=== PATIENT | female | born 1995 | race Caucasian/White ===

== ENCOUNTER → 2020-07-24 | Outpatient (CLI) | payer MEDICAID ==
--- NOTE | 2020-07-24 16:31 | RADIOLOGY REPORT (SQ) ---
EXAM DESCRIPTION: U/S NON OB PEL W/DOPPLER IMAGES COMPLETED DATE/TIME: 07/24/2020 4:22 pm REASON FOR STUDY: R10.2 PELVIC AND PERINEAL PAIN R10.2 PELVIC AND PERINEAL PAIN COMPARISON: None. TECHNIQUE: Dynamic and static grayscale images acquired of the pelvis via transabdominal approach an d recorded on PACS. Additional selected color Doppler and spectral images recorded. LIMITATIONS: None. FINDINGS: UTERUS: Normal in size and contour measuring 8.7 x 4.9 x 3.6 cm ENDOMETRIAL STRIPE: No focal or generalized thickening. No masses. Endometrial stripe measures 4 mm. CERVIX: No nabothian cysts. RIGHT OVARY AND DOPPLER: Normal size measuring 2.6 x 1.7 x 2.1 cm. No worrisome masses. Normal arteri al vascular flow without evidence for torsion. LEFT OVARY AND DOPPLER: Normal size measuring 2.4 x 2.3 x 1.6 cm. No worrisome masses. Normal arteria l vascular flow without evidence for torsion. FREE FLUID: None noted. OTHER: Linear echogenic focus within the endometrial canal compatible with intrauterine device. IMPRESSION: Linear echogenic focus within the endometrial canal compatible with intrauterine device. Otherwise, unremarkable pelvic ultrasound. TECHNICAL DOCUMENTATION: JOB ID: [id number] 2010 [employer]- All Rights Reserved Rev-03/09 Reading location - IP/workstation name: [email or web address]
== END ==
LOC: RAD 16:00
PROVIDERS: ATTEND Nurse Practitioner Family
DX: R10.2 Pelvic and perineal pain (principal); Z97.5 Presence of (intrauterine) contraceptive device
CPT/HCPCS: 76856; 93976

== ENCOUNTER 2020-10-19 05:25 | Day surgery (SDC) | payer MEDICAID ==
[2020-10-14 13:10] LABS: APPEARANCE,URINE CLEAR; BILIRUBIN,URINE NEGATIVE (NEGATIVE); COLOR,URINE YELLOW; GLUCOSE, URINE NEGATIVE (NEGATIVE); KETONES,URINE NEGATIVE (NEGATIVE); LEUKOCYTE ESTERASE,URINE NEGATIVE (NEGATIVE); NITRITE,URINE NEGATIVE (NEGATIVE); PROTEIN,URINE NEGATIVE (NEGATIVE); URINE SPECIFIC GRAVITY 1.011; UROBILINOGEN,URINE NEGATIVE mg/dL (<2.0)
[2020-10-14 13:18] LABS: HEMATOCRIT 37.9 % (36.0-47.0); HEMOGLOBIN 12.6 g/dL (12.0-15.5); MEAN CORPUSCULAR HEMOGLOBIN 28.5 pg (27.0-33.4); MEAN CORPUSCULAR HGB CONC 33.4 g/dL (32.0-36.0); MEAN CORPUSCULAR VOLUME 85 fl (80-97); PLATELET COUNT 236 10^3/uL (150-450); RED BLOOD COUNT 4.44 10^6/uL (3.72-5.28); RED CELL DISTRIBUTION WIDTH 13.4 % (11.5-14.0); WHITE BLOOD COUNT 9.6 10^3/uL (4.0-10.5)
[~2020-10-19 05:25] MED LIST: IBUPROFEN 800 MG TABLET PO PRN; KETOROLAC TROMETHAMINE INJ/PF 30 MG/1 ML SDV IM PRN; LACTATED RINGERS 1000 ML IV PRN; LIDOCAINE 0.5% INJ-PF (5 MG/ML) 50 ML SDV SUBCUT PRN; OXYCODONE-ACETAMINOPHEN 5-325 MG TABLET PO PRN
[2020-10-19] MEDS ORDERED: EPHEDRINE SULFATE INJ 50 MG/1 ML AMPULE ONE (06:44)
[2020-10-19] MEDS ORDERED: MIDAZOLAM 2 MG/2 ML INJ ONE (06:44)
[2020-10-19] MEDS ORDERED: FENTANYL CITRATE INJ/PF 100 MCG/2 ML AMPUL ONE (06:44)
[2020-10-19] MEDS ORDERED: SUGAMMADEX SODIUM 200 MG/2 ML SDV IV ONE (06:44)
[2020-10-19] MEDS ORDERED: PROPOFOL INJ 200 MG/20 ML VIAL IV ONE (06:44)
[2020-10-19] MEDS ORDERED: LIDOCAINE 2% INJ (20 MG/ML) 20 ML MDV ONE (06:45)
[2020-10-19] MEDS ORDERED: MEPERIDINE HCL/PF INJ 25 MG/1 ML DISP.SYRIN IV PRN (08:07)
[2020-10-19] MEDS ORDERED: DIPHENHYDRAMINE HCL 50 MG/ML VIAL IV PRN (08:07)
[2020-10-19] MEDS ORDERED: FENTANYL CITRATE INJ/PF 100 MCG/2 ML AMPUL IV PRN ×3 (08:07)
[2020-10-19] MEDS ORDERED: MORPHINE SULFATE 10 MG/ML INJ IV PRN (08:07)
[2020-10-19] MEDS ORDERED: PROMETHAZINE HCL INJ 25 MG/1 ML VIAL IV PRN ×2 (08:07)
[2020-10-19] MEDS ORDERED: OXYCODONE-ACETAMINOPHEN 5-325 MG TABLET PO PRN ×4 (08:07→08:31)
[2020-10-19] MEDS ORDERED: KETOROLAC TROMETHAMINE INJ/PF 30 MG/1 ML SDV IV PRN (08:31)
[2020-10-19] MEDS ORDERED: IBUPROFEN 800 MG TABLET PO PRN (08:31)
[2020-10-19] MEDS ORDERED: RINGERS SOLUTION,LACTATED 1,000 ML IV PRN (08:31)
--- NOTE | 2020-10-19 08:37 | Operative Report ---
Operative Report DATE OF SURGERY: 10/19/20 PREOPERATIVE DIAGNOSIS: Patient desires bilateral tubal cautery and removal of her IUD POSTOPERATIVE DIAGNOSIS: Same OPERATION: Bilateral tubal cautery with laparoscopy and IUD removal SURGEON: SHAINA ENG ANESTHESIA: GA TISSUE REMOVED OR ALTERED: Placenta COMPLICATIONS: None ESTIMATED BLOOD LOSS: Minimal INTRAOPERATIVE FINDINGS: Normal uterus tubes and ovaries PROCEDURE: Patient was taken to the OR and placed in supine position. Anesthesia was induced. She had just voided and did not need catheterization. She was placed in dorsolithotomy position her abdomen vagina and perineum were prepared and draped in a sterile fashion. A speculum was placed in the vagina and the IUD was removed. A sponge stick was placed for manipulation of the uterus. An incision was made at the umbilicus and the natural umbilical defect was identified and dilated with Carolyn clamp allowing a blunt port to be placed. Laparoscopy confirmed appropriate placement. Each fallopian tube was identified by following out to its fimbriated end. Each tube was then cauterized with 5 successive bites at the mid isthmic portion moving back toward the uterine cornu. Photos were taken at the end of the case. Next the gas was allowed to escape from the abdomen. The scope and port were removed at the same time. The fascia was closed with a 2-0 Vicryl stitch and the skin closed with a 4-0 undyed Vicryl stitch. The sponge stick was removed from the vagina. She is placed back in supine position and brought out of anesthesia. She is taken recovery in stable condition.
--- NOTE | 2020-10-19 08:42 | Discharge Summary ---
Discharge Summary (SDC) - Discharge Final Diagnosis: Encounter for bilateral tubal ligation Date of Surgery: 10/19/20 Discharge Date: 10/19/20 Condition: Good Prescriptions: Oxycodone HCl/Acetaminophen [Percocet 5-325 mg Tablet] 1 tab PO Q4HP PRN #20 tablet PRN Reason: Ibuprofen [Motrin 800 mg Tablet] 800 mg PO Q8H PRN #30 tablet PRN Reason: Referrals: STEVO MONTELONGO, [facility] [Primary Care Provider] - Discharge Diet: Regular Discharge Activity: Balance Activity w/Rest, Pelvic Rest Report the Following to Your Physician Immediately: Increase in Pain, Unusual Bleeding
[2020-10-19] MEDS ORDERED: OXYCODONE-ACETAMINOPHEN 5-325 MG TABLET ONE (09:01)
[2020-10-19] MEDS ORDERED: SUCCINYLCHOLINE CHLORIDE INJ 200 MG/10 ML VIAL ONE (09:51)
[2020-10-19] MEDS ORDERED: DEXAMETHASONE SOD PHOSPHATE INJ 4 MG/1 ML VIAL ONE (09:51)
[2020-10-19] MEDS ORDERED: KETOROLAC TROMETHAMINE 60 MG/2 ML SDV ONE (09:51)
[2020-10-19] MEDS ORDERED: ROCURONIUM BROMIDE INJ 50 MG/5 ML VIAL IV ONE (09:51)
[2020-10-19] MEDS ORDERED: ONDANSETRON HCL INJ/PF 4 MG/2 ML SDV ONE (09:51)
[2020-10-19] MEDS ORDERED: DIPHENHYDRAMINE HCL 50 MG/ML VIAL ONE (09:51)
[2020-10-19] MEDS ORDERED: METOCLOPRAMIDE HCL INJ/PF 10 MG/2 ML SDV ONE (09:51)
[2020-10-19 15:53] VITALS: BP 131/74
== END 2020-10-19 10:00 | disposition home or self-care (01) ==
LOC: OROUT 05:25
PROVIDERS: ATTEND Obstetrics & Gynecology
DX: Z30.2 Encounter for sterilization (principal); F17.210 Nicotine dependence, cigarettes, uncomplicated; J45.909 Unspecified asthma, uncomplicated; F41.9 Anxiety disorder, unspecified; F32.9 Major depressive disorder, single episode, unspecified; K21.9 Gastro-esophageal reflux disease without esophagitis; Z20.828 Contact with and (suspected) exposure to other viral communicable diseases; Z30.432 Encounter for removal of intrauterine contraceptive device
CPT/HCPCS: 36415; 85027; 87635; 81005; 81025; 58670; 58301; J2250; J3490 ×2; J3010; J2704; C9803; J0330; J1100; J1200; J1885; J2405; J2765